=== PATIENT | female | born 1970 | race African-American/Black ===

== ENCOUNTER 2017-07-07 15:38 | Inpatient (IN) | payer OTHER ==
[~2017-07-07] VITALS: Ht 162.6 cm; Wt 89.1 kg
--- NOTE | 2017-07-07 16:52 | ED PSYCHIATRIC COMPLAINT ---
History of Present Illness General Chief Complaint: General Adult Stated Complaint: "IM OFF MY PSYCH MEDS, I NEED SOMETHING TO HELP" Source: patient Exam Limitations: no limitations Vital Signs & Intake/Output Vital Signs & Intake/Output Vital Signs Date Time Temp Pulse Resp B/P B/P Pulse O2 O2 Flow FiO2 Mean Ox Delivery Rate 07/09 0817 98.6 89 18 98/62 98 Room Air 07/09 0611 97.4 75 18 96/72 95 Room Air 07/08 2037 98.1 76 16 114/60 97 Room Air 07/08 1548 98.7 78 16 100/62 99 Room Air Allergies Coded Allergies: NO KNOWN ALLERGIES (10/07/11) Triage Note: 47 YO FEMALE TO TRIAGE C/O "IM JUST OVERWHELMED" STATES THERE IS ALOT GOING ON RIGHT NOW BUT SHE DOES NOT WANT TO TALK ABOUT IT. REPORTS +SI THOUGHT YESTERDAY. DENIES ALCOHOL/DRUG USE. Triage Nurses Notes Reviewed? yes Onset: Abrupt Duration: day(s): (1), constant, continues in ED Timing: recent history Severity: mild, moderate Severity Numbers: 7 Associated Symptoms: anxiety, suicidal ideation LMP (ages 10-50): unknown : No Patient currently breastfeeds: No HPI: 47-year-old female past medical history of anxiety, depression presents for evaluation of worsening depression and anxiety. Patient states that she has not been taking her psych meds for greater than a month. She states that her insurance ran out so she stopped Seeing her doctor. She supposed be taking Seroquel sertraline and trazodone but has not taken them in a month. She denies any alcohol or drug use. She does report feeling very depressed and did report thoughts of suicide but refuses to elaborate on a plan. She denies any homicidal ideation. No chest pain shortness of breath nausea vomiting diarrhea. He repeatedly says "I have nowhere to go and no reason to live". She denies any hallucinations. She has been admitted for psychiatric reasons multiple times. (Alan Orta) Reconcile Medications No Known Home Medications (Cameron Nagel DO) Past History Travel History Traveled to [place] past 21 day No Medical History Any Pertinent Medical History? see below for history Neurological: NONE EENT: NONE Cardiovascular: NONE Respiratory: NONE Gastrointestinal: NONE Hepatic: NONE Renal: NONE Musculoskeletal: NONE Psychiatric: anxiety, depression Endocrine: NONE Blood Disorders: NONE Cancer(s): NONE WOODWORKER/Reproductive: NONE Surgical History Surgical History: non-contributory Psychosocial History What is your primary language Tajik Tobacco Use: Never used Family History Hx Contributory? No (Alan Orta) Review of Systems Review of Systems Constitutional: Reports: no symptoms. EENTM: Reports: no symptoms. Respiratory: Reports: no symptoms. Cardiovascular: Reports: no symptoms. GI: Reports: no symptoms. Genitourinary: Reports: no symptoms. Musculoskeletal: Reports: no symptoms. Skin: Reports: no symptoms. Neurological/Psychological: Reports: see HPI, anxiety, depressed. Hematologic/Endocrine: Reports: no symptoms. Immunologic/Allergic: Reports: no symptoms. All Other Systems: Reviewed and Negative (Alan Orta) Physical Exam Physical Exam General Appearance: well developed/nourished, no apparent distress, alert, awake Head: atraumatic, normal appearance Eyes: Bilateral: normal appearance, PERRL, EOMI. Ears, Nose, Throat: normal pharynx, normal ENT inspection, hearing grossly normal Neck: normal inspection, supple, full range of motion Respiratory: normal breath sounds, chest non-tender, no respiratory distress, lungs clear Cardiovascular: regular rate/rhythm, normal peripheral pulses Gastrointestinal: normal bowel sounds, soft, non-tender, no organomegaly Extremities: normal range of motion Neurological/Psychiatric: no motor/sensory deficits, awake, calm Appearance/Memory/Insight: appropriate appearance, impaired insight Behavoir/Eye Contact/Speech: uncooperative, refused to answer Thoughts/Hallucinations: normal thought pattern, no apparent hallucination Skin: intact, normal color, warm/dry SAD PERSONS SAD PERSONS Response Value Age <19 or >45 years? yes 1 Depression/Hopelessness? yes 2 Previous Attempts/Psych Care yes 1 Rational Thinking Loss? yes 2 Single//? yes 1 Stated Future Intent? yes 2 Total 9 SAD PERSONS Done? yes (Alan Orta) Progress Differential Diagnosis: dementia, drug intoxication, drug overdose, drug withdrawal, electrolyte abnormality Plan of Care: Orders Procedure Date/time Status Admit to inpatient psych 07/09 1124 Active Continuous Observation Monitor 07/09 0700 Active Continuous Observation Monitor 07/09 0300 Active Continuous Observation Monitor 07/08 2300 Active Continuous Observation Monitor 07/08 1900 Active Current Medications Sig/Tiffani Start time Last Medication Dose Stop Time Status Admin Lorazepam 2 MG QPM 07/08 2099 UNVr 07/08 (Ativan) 2122 Quetiapine Fumarate 100 MG BID 07/08 2099 UNVr 07/09 (Seroquel) 0830 Risperidone 2 MG QPM 07/08 2099 UNVr 07/08 (Risperidone) 212 Trazodone HCl 100 MG QPM 07/08 2099 UNVr 07/08 (Desyrel) 212 Lorazepam 2 MG Q6P PRN 07/08 1200 AC (Ativan) Patient seen and evaluated. She is here reporting increasing depression and anxiety medication noncompliance and thoughts of suicide. She refuses to elaborate any further. While patient is remaining calm she is refusing to comply with lab work or a urinalysis. Patient requested that she be medicated prior to blood draw that she was very anxious she was given a milligram of oral Ativan however still refused her blood draw. Patient continues to refuse to allow her blood to be drawn. She has also not given a urine sample. Her vital signs are stable she does not appear clinically intoxicated. We'll continue to attempt to have patient get blood work. Patient was able to give a urine her urine drug screen was negative urinalysis did show some signs of infection and a culture was ordered. We'll continue to attempt to convince patient to allow blood work. Patient continues to refuse blood work. She is here for evaluation of suicidal ideation. So she will require crisis evaluation. Spoke with crisis and they will not be seeing her tonight. Patient will be held over in the emergency department pending labs and crisis evaluation. Patient signsed out to Dr. Momin. Hand-Off Endorsed To: Patrice Momin MD Endorsed Time: 2300 Pending: consult (crisis), labs (Alan Orta) Hand-Off Endorsed To: Julius Woo MD Endorsed Time: 1900 Pending: other (bed search) (Cameron Nagel DO) Hand-Off Endorsed To: Devan Lutz MD Endorsed Time: 07 Pending: other (psych bed placement) (Julius Woo MD) Departure Departure Disposition: STILL A PATIENT Clinical Impression Primary Impression: Suicidal ideation Referrals: Patient Has No Primary Care Dr (PCP/Family) Departure Forms: Customer Survey General Discharge Information (Alan Orta) Departure Condition: Stable Comments pt to be signed out to dr. nagel, 07/08/17, 7am, pending crises eval. PA/LAW FIRM ADMINISTRATOR Co-Sign Statement Statement: ED Attending supervision documentation- [] I saw and evaluated the patient. I have also reviewed all the pertinent lab results and diagnostic results. I agree with the findings and the plan of care as documented in the PA's/LAW FIRM ADMINISTRATOR's documentation. [x] I have reviewed the ED Record and agree with the PA's/LAW FIRM ADMINISTRATOR's documentation. [] Additions or exceptions (if any) to the PAs/LAW FIRM ADMINISTRATOR's note and plan are summarized below: [] (Merrill PATTERSON,Patrice Caceres) Departure Prescriptions: Current Visit Scripts No Known Home Medications PA/LAW FIRM ADMINISTRATOR Co-Sign Statement Statement: ED Attending supervision documentation- [] I saw and evaluated the patient. I have also reviewed all the pertinent lab results and diagnostic results. I agree with the findings and the plan of care as documented in the PA's/LAW FIRM ADMINISTRATOR's documentation. [] I have reviewed the ED Record and agree with the PA's/LAW FIRM ADMINISTRATOR's documentation. [] Additions or exceptions (if any) to the PAs/LAW FIRM ADMINISTRATOR's note and plan are summarized below: [] (Cameron Nagel DO) Psych Admission Note Psychiatric Admission: I have seen and evaluated LUBNA VERA. I have also reviewed all the pertinent lab results and diagnostic results. LUBNA VERA will be admitted to our inpatient Psychiatric unit for treatment and care. (Nelda PATTERSON,Devan Castillo) as documented in the PA's/LAW FIRM ADMINISTRATOR's documentation. [] I have reviewed the ED Record and agree with the PA's/LAW FIRM ADMINISTRATOR's documentation. [] Additions or exceptions (if any) to the PAs/LAW FIRM ADMINISTRATOR's note and plan are summarized below: [] (Cameron Nagel DO)
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
[2017-07-09 11:47] LABS: ABSOLUTE BASOPHIL COUNT 0 /CUMM (0.0-0.2); ABSOLUTE EOSINOPHIL COUNT 0 /CUMM (0.0-0.7); ABSOLUTE GRANULOCYTE CT 2.9 /CUMM (1.4-6.5); ABSOLUTE LYMPH COUNT 1.4 /CUMM (1.2-3.4); ABSOLUTE MONOCYTE COUNT 0.4 /CUMM (0.10-0.60); BASOPHIL % 0.5 % (0.0-2.0); EOSINOPHIL % 0.8 % (0-5); GRANULOCYTE % 60.2 % (42.2-75.2); HEMATOCRIT 33.5 % (37-47); MEAN CORPUSCULAR HGB 27.6 PG (27.0-31.0); MEAN CORPUSCULAR VOLUME 83.7 FL (81.0-99.0); MEAN PLATELET VOLUME 10.9 FL (7.4-10.4); PLATELET COUNT 182 /CUMM (130-400); RBC DISTRIBUTION WIDTH 14.2 % (11.5-14.5); RED BLOOD CELL CT 4.01 /CUMM (4.20-5.40); WHITE BLOOD CELL COUNT 4.8 /CUMM (4.8-10.8)
[2017-07-09 14:04] VITALS: BP 107/66
[2017-07-09 15:55] VITALS: BP 109/62
[2017-07-09 20:20] VITALS: BP 110/67
[2017-07-10 01:30] VITALS: BP 92/60
[2017-07-10 08:24] VITALS: BP 102/64
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
[2017-07-10 12:24] VITALS: BP 105/73
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
[2017-07-10 16:04] VITALS: BP 116/63
--- NOTE | 2017-07-10 17:36 | SOCIAL WORKER PROG NOTE PSYCH ---
Social Work Progress Note Progress Note This curriculum writer met with patient. She stated that she came to the hospital due to SI with thoughts to stab herself with a knife. Patient also reported that she had not been sleeping well over the past few days (about three days). She denied current SI. She denied HI/VH. Patient reported AH at times in which she is "told what to do or not do." She was unable expand further other than to say that occassionally her AH states that she should have acted on SI. Patient stated that she feels safe on the unit and will inform staff immediately if feeling unsafe. Patient stated that she planned on going to [facility], but did not have an appointment. She was agreeable to an IOP referral. Patient reported past use of Crack/Cocaine, with last use about one month ago. Patient stated that she would think about who she would like to invite for a family meeting this weekend.
[2017-07-10 20:05] VITALS: BP 104/58
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
[2017-07-11 08:41] VITALS: BP 110/62
[2017-07-11 12:15] VITALS: BP 105/58
--- NOTE | 2017-07-11 15:13 | CP SOUTH PROGRESS NOTE PSYCH ---
Psych (Inpt) Progress Note Progress Note Include the following elements, when applicable: Involvement in the active treatment of the patient with behavioral observations of the patient and the patient's response to the treatment. Review of the ongoing treatment process in the context of the treatment plan. Indication of how multi-disciplinary staff members are carrying out the treatment plan. Plans for future interventions and recommendations for revision of the treatment plan. Liaison with other physicians/providers. Progress Note: The patient was seen one-to-one and discussed with the unit staff. She has been irritable, angry, with on and off compliance with medication. During our interview she was not making eye contact. She was loud, angry, demanding discharge. She was talking about being influenced/followed/monitored by the [employer] and the [employer] We discussed with the patient and her father. The patient denies suicidal/homicidal ideation, auditory/visual hallucinations or side effects from medication. We did order a small dose of lorazepam to be given with the Seroquel in order to relieve anxiety and help with mood stabilization. The patient understands the risks/benefits/side effects of the medication and agrees to continue taking them as noted below. We will continue present medication regimen, observation, symptom monitoring. The patient will be followed up daily by the unit psychiatrist.
[2017-07-11 16:05] VITALS: BP 101/59
[2017-07-11 19:51] VITALS: BP 123/74
[2017-07-12 07:50] VITALS: BP 107/54
[2017-07-12 12:00] VITALS: BP 118/64
--- NOTE | 2017-07-12 14:04 | CP SOUTH PROGRESS NOTE PSYCH ---
Psych (Inpt) Progress Note Progress Note Include the following elements, when applicable: Involvement in the active treatment of the patient with behavioral observations of the patient and the patient's response to the treatment. Review of the ongoing treatment process in the context of the treatment plan. Indication of how multi-disciplinary staff members are carrying out the treatment plan. Plans for future interventions and recommendations for revision of the treatment plan. Liaison with other physicians/providers. Progress Note 47 years old female in treatment for schizo affective disorder exacerbated due to noncompliance with medication. The patient was seen one-to-one and discussed with the nursing staff. She is pleasant operative, much better than she was previously. She says that the medication helps with her thoughts, understanding what to do for not. Continues to have some thought blocking. The patient denies suicidal/homicidal ideation, auditory/visual hallucinations or side effects from medication. Current Medications Sig/Tiffani Start time Last Medication Dose Route Stop Time Status Admin Acetaminophen 650 MG Q4P PRN 07/10 0830 AC PO Al Hydroxide/Mg 30 ML Q4-6 PRN PRN 07/10 0830 AC Hydroxide PO Ampicillin 500 MG Q6H 07/09 2359 AC 07/13 PO 1745 Lorazepam 0.5 MG Q4 PRN 07/11 1800 AC 07/13 PO 07/18 1759 1746 Lorazepam 1.5 MG QPM 07/10 2100 AC 07/12 PO 2119 Magnesium Hydroxide 30 ML AT BEDTIME NEED.. 07/10 0830 AC PO Nicotine 4 MG Q2 HRS NEEDED PRN 07/11 1845 AC 07/11 PO 1901 Quetiapine Fumarate 50 MG BID 07/10 2100 AC 07/13 PO 0849 Quetiapine Fumarate 25 MG Q4P PRN 07/10 1145 AC 07/13 PO 1746 Risperidone 1 MG QPM 07/10 2100 AC 07/12 PO 2119 Trazodone HCl 50 MG QPM 07/10 2100 AC 07/12 PO 2119 Vital Signs Date Time Temp Pulse Resp B/P B/P Pulse O2 O2 Flow FiO2 Mean Ox Delivery Rate 07/13 1620 87 100/83 07/13 1208 94 102/59 07/13 0838 97.1 92 102/64 07/12 1954 96.5 96 132/61 She is compliant with medication, active on the unit, continues to request discharge, she is improving but there is still paranoia, thought blocking, irritability requiring further stabilization on an inpatient level of care. We will continue present medication regimen, observation, symptom monitoring. The patient will be followed up daily by the unit psychiatrist.
[2017-07-12 15:55] VITALS: BP 111/50
[2017-07-12 19:54] VITALS: BP 132/61
--- NOTE | 2017-07-13 08:26 | CP SOUTH PROGRESS NOTE PSYCH ---
Psych (Inpt) Progress Note Progress Note Include the following elements, when applicable: Involvement in the active treatment of the patient with behavioral observations of the patient and the patient's response to the treatment. Review of the ongoing treatment process in the context of the treatment plan. Indication of how multi-disciplinary staff members are carrying out the treatment plan. Plans for future interventions and recommendations for revision of the treatment plan. Liaison with other physicians/providers. Progress Note: Subjective: Patient knocking on office door several times this morning to speak with display card writer. Patient requesting discharge first thing in the morning. States she is feeling "fine." Patient denies that there is been any conversation about the FBI or [employer] bothering her. Patient denies SI/HI/AVH/SIB. States she used to have AH "a long time ago." Patient denies side effects to medication. Patient eating and sleeping well. Denies side effects to medication, pain or cravings. Patient is not able to come up with any plan post discharge other than going to father's house. Psychoeducation and supportive therapy provided. Patient appears to be in guarded agreement with starting outpatient care near her home in [place]. Denies any other complaints. Objective: Patient was adherent with medications and in behavioral control. Patient has been refusing 6 doses of ampicillin, has taken a total of 8 for UTI. Per nursing, patient refuses medications when she is more psychotic. Patient continues to refuse labs. VSS. Current Medications Sig/Tiffani Start time Last Medication Dose Route Stop Time Status Admin Acetaminophen 650 MG Q4P PRN 07/10 0830 AC PO Al Hydroxide/Mg 30 ML Q4-6 PRN PRN 07/10 0830 AC Hydroxide PO Ampicillin 500 MG Q6H 07/09 2359 AC 07/12 PO 1759 Lorazepam 0.5 MG Q4 PRN 07/11 1800 AC 07/12 PO 07/18 1759 1608 Lorazepam 1.5 MG QPM 07/10 2100 AC 07/12 PO 2119 Magnesium Hydroxide 30 ML AT BEDTIME NEED.. 07/10 0830 AC PO Nicotine 4 MG Q2 HRS NEEDED PRN 07/11 1845 AC 07/11 PO 1901 Quetiapine Fumarate 50 MG BID 07/10 2100 AC 07/12 PO 2119 Quetiapine Fumarate 25 MG Q4P PRN 07/10 1145 AC 07/12 PO 1608 Risperidone 1 MG QPM 07/10 2099 AC 07/12 PO 2118 Trazodone HCl 50 MG QPM 07/10 2099 AC 07/12 PO 2118 Laboratory Tests 07/12/17 0600: Hemoglobin A1c Cancelled, Triglycerides Cancelled, Cholesterol Cancelled, LDL Cholesterol, Calc Cancelled, HDL Cholesterol Cancelled, Cholesterol/HDL Ratio Cancelled Vital Signs Date Time Temp Pulse Resp B/P B/P Pulse O2 O2 Flow FiO2 Mean Ox Delivery Rate 07/12 1954 96.5 96 132/61 07/12 1555 82 111/50 07/12 1200 89 118/64 MSE: General: Patient alert and oriented to self and place, fair hygeine, fair eye contact, speaking minimally, no apparent distress. Speech: Slow and low, speaking only briefly. Motor: No tics, tremors, stereotypy but moving slowly. Mood: "Fine ." Affect: Down, constricted, mood incongruent, non-labile, poorly related. Thought process: Logical, linear and goal-directed, brief. Thought content: No SI/HI/AVH/SIB. Appears fixated on discharge, denies all delusions. Cognition: Mild deficits in memory, attention, concentration. Insight: Poor. Judgment: Fair, remaining in behavioral control on unit. A&P: 47-year-old -[place] female with decompensation of schizophrenia in the context of medication non-adherence presenting as irritable, angry and disorganized with paranoid delusions of being monitored by the [employer]/FBI. Over the weekend Ativan was added prn anxiety in addition to Seroquel. Voluntarily admitted. Patient has been intermittently adherent with medications, in improved behavioral control today and is less angry and more pleasant with staff yesterday. Patient states she feels to be at baseline and requesting discharge first thing in the morning however patient is unlikely ready for discharge and continues to remain paranoid. -Maintain safety, every 15 minute checks -ampicillin for UTI renewed, pt has taken 8 of 14 doses -Continue medications as above -pt interested in OP treatment in [place] -previously was on wait list for bed at [facility], states she wants to go back to [facility] house -Continue plan
[2017-07-13 08:38] VITALS: BP 102/64
[2017-07-13 12:08] VITALS: BP 102/59
[2017-07-13 16:20] VITALS: BP 100/83
[2017-07-13 20:00] VITALS: BP 106/61
[2017-07-14 07:40] VITALS: BP 100/57
[2017-07-14] MEDS ORDERED: AMPICILLIN TRI500 MG PO (09:55)
[2017-07-14] MEDS ORDERED: NICODERM CQ1 EAC1 TOP (09:55)
[2017-07-14] MEDS ORDERED: SEROQUEL50 M1 PO (09:58)
[2017-07-14] MEDS ORDERED: ATIVAN0.5 M1 PO (10:00)
[2017-07-14] MEDS ORDERED: RISPERDAL1 M1 PO (10:00)
--- NOTE | 2017-07-14 11:43 | Patient Discharge Instructions ---
Psych Discharge Inst General Discharge Information Reason for Admission: acute psychosis Psy Discharge Primary Diag+ Unspecified psychotic Dis Psy Discharge Secondary Diag+ history of polysubstance Summary Tests/Major Procedures The patient's urine toxicology was clean there were no drugs in her system. Studies Pending at DC: None Patient Instructions Contact Information Your Psychiatrist on [facility] was Lalo Whitley MD * If you are experiencing an emergency related to this hospitalization, please call [phone] to contact the treating psychiatrist or the psychiatrist-on- call. * To Request a copy of your medical records, please contact the Medical Records Department at [phone]. * To request results of studies pending at the time of discharge, please call [phone]. * Continue your Medications until directed to stop by your Healthcare provider. General Medication Information Please continue to take your new medications and your continued home medications , unless otherwise indicated on your discharge medication list, or unless directed by your MD or FLIGHT ATTENDANT/INFLIGHT MANAGER to stop them. Special Instructions Diet Regular Activity Normal - Tobacco Use Treatment Offered Post DC Medications Offered: Script Given-See Med List Post DC Tobacco Treatment Plan: Refused Tobacco Tx Pgm - EtOH/Drug Use D/O Treatment Offered Post DC Medications Offered: Ref Med EtOH/Drug Use D/O Post DC EtOH/SubAbuse TX Plan: Refused Post DC Tx Pgm Metabolic Screening Patient on a neuroleptic(s) . Enter below results for Hemoglobin A1C, and lipid panel if obtained during the last 365 days. BMI: 34.500 Blood Pressure: 100/57 Laboratory Results From [facility] (If applicable): patient refused to do metabolic profile/lipids/HbA1c more than once 07/12/17 0600: Hemoglobin A1c Cancelled, Triglycerides Cancelled, Cholesterol Cancelled, LDL Cholesterol, Calc Cancelled, HDL Cholesterol Cancelled, Cholesterol/HDL Ratio Cancelled[ Advance Directives Does the Patient have Medical Advance Directives No/Refused further info Does Pt have Psychiatric Advance Directives? No/Refused further info Does Patient have a Designated Surrogate Decision Maker: No Information About Psychiatric Advance Directives Provided? Refused Discharge Plan Post Hospital Treatment Plan: [facility] vs. [facility]
--- NOTE | 2017-07-14 11:45 | CP SOUTH PROGRESS NOTE PSYCH ---
Psych (Inpt) Progress Note Progress Note I reviewed the notes of Dr. Jessica Geiger MD for 07/11 and [address] Polina Brian MD, for 07/13/17 Treatment team discussed Pt's progress, treatment plan, and aftercare plans. Team included: LCSWs, RNs, Group/Activity/Art Therapy staff, and psychiatrist. Laboratory Tests 07/14 Hemoglobin A1c Cancelled Vital Signs Date Time Temp Pulse B/P B/P 07/14 0740 96.5 90 100/57 07/13 2000 96.3 98 106/61 07/13 1620 87 100/83 Patient focused on discharge/requesting discharge first thing in the morning. She reported feeling "fine" and ready to go home. She denied feeling hopeless, denied feeling worthless, denied wishing , and denied thinking of suicide. There were no delusions today about the FBI or the [employer] or she denied hallucinations. She reported that she has been sleeping well. Denied feeling depressed. Denied feeling too anxious. And has been taking medications as prescribed. She denied side effects. There was no visible side effects from the medication and (no akathisia no dystonia and no parkinsonian tremors Patient alert and oriented to self and place, fair hygeine, fair eye contact, speaking minimally, no apparent distress. Speech: Slow and low, speaking only briefly. Motor: No tics, tremors, stereotypy but moving slowly. Mild deficits in memory, attention, concentration. good behavioral control on unit. A&P: 47-year-old -[place] female with decompensation of schizophrenia in the context of medication non-adherence presenting as irritable, angry and disorganized with paranoid delusions of being monitored by the [employer]/FBI. Voluntarily admitted. Plan; D/C Home
[2017-07-14 11:50] VITALS: BP 106/61
--- NOTE | 2017-07-14 14:41 | DISCHARGE SUMMARY REPORT-PSYCH ---
Visit Information Visit Dates/Diagnosis' Admission Date: 07/09/17 Discharge Date: 07/14/17 Reason for Admission: acute psychosis Psy Discharge Primary Diag: Unspecified psychotic Dis Psy Discharge Secondary Diag: history of polysubstance Hospital Course Course Allergies: Coded Allergies: NO KNOWN ALLERGIES (10/07/11) Hospital Course/TX Response: Laboratory Tests 07/14 Hemoglobin A1c Cancelled Vital Signs Date Time Temp Pulse B/P B/P 07/14 0740 96.5 90 100/57 07/13 2000 96.3 98 106/61 07/13 1620 87 100/83 Patient focused on discharge/requesting discharge first thing in the morning. She reported feeling "fine" and ready to go home. She denied feeling hopeless, denied feeling worthless, denied wishing , and denied thinking of suicide. There were no delusions today about the FBI or the [employer] or she denied hallucinations. She reported that she has been sleeping well. Denied feeling depressed. Denied feeling too anxious. And has been taking medications as prescribed. She denied side effects. There was no visible side effects from the medication and (no akathisia no dystonia and no parkinsonian tremors Patient alert and oriented to self and place, fair hygeine, fair eye contact, speaking minimally, no apparent distress. Speech: Slow and low, speaking only briefly. Motor: No tics, tremors, stereotypy but moving slowly. Mild deficits in memory, attention, concentration. good behavioral control on unit. A&P: 47-year-old -[place] female with decompensation of schizophrenia in the context of medication non-adherence presenting as irritable, angry and disorganized with paranoid delusions of being monitored by the [employer]/FBI. Voluntarily admitted. Plan; D/C Home Discharge HBIPS - Tobacco Use Treatment Offered - EtOH/Drug Use D/O Treatment Offered Metabolic Screening - Screen if on a Neuroleptic Medication - Metabolic screening should include: - Blood Pressure, BMI, Glucose or Hgb A1c, & a - Lipid profile from within the past 365 days. Discharge Instructions General Discharge Information Multiple Neuroleptics: Patient uses seroquel for sleep only (low dose), did not want to use another sleeping aid Discharge Diet Regular Discharge Activity Normal Referrals Ordered Referrals Provider Referral 07/21/17 For Groups: [[facility]] [address] [phone] IOP intake appointment: 07/21/17, at 2pm Provider Referral 07/15/17 For Groups: [[facility]] [facility] [address], [place] [phone] Group meets every other Thursday at 4pm Next group: 07/15/17 at 4pm Prescriptions Start taking the following new medications: Ampicillin Trihydrate (Ampicillin Trihydrate) 500 MG CAPSULE 500 Milligram ORAL 4 TIMES A DAY Qty = 8 No Refills Comments: Last Taken:07/14/17 Time:12MN Risperidone (Risperdal) 1 MG TABLET 1 Milligram ORAL Every night Qty = 30 No Refills Comments: Last Taken:07/13/17 Time:9:45PM Nicotine (Nicoderm Cq) 14 MG/24 HOUR PATCH.TD24 1 Patch On the skin DAILY Qty = 28 No Refills Comments: Last Taken:TO START AT HOME Time: Quetiapine Fumarate (Seroquel) 50 MG TABLET 1 Tablet ORAL Every night Qty = 30 No Refills Comments: Last Taken:07/14/17 Time:8:30AM Lorazepam (Ativan) 0.5 MG TABLET 2 Tablet ORAL SEE INSTRUCTIONS Qty = 21 No Refills Instructions: 2 tabs at bedtime x 1 week then 1 tab at bedtime x 1 week then STOP Comments: Last Taken:07/13/17 Time:9:45PM Studies Pending at Discharge None
--- NOTE | 2017-07-14 17:39 | SOCIAL WORKER PROG NOTE PSYCH ---
See Addendum Social Work Progress Note Progress Note This insurance underwriter sales met with patient. She expressed interest in discharging today. Patient was agreeable to a referral to [facility] for IOP. She described as good. Patient reported no depression today and denied SI/HI/AH/VH. Regarding a safety plan, she accepted the crisis numbers and warm line numbers. Patient stated that her father will pick her up from the hospital and she plans to return home with him. She refused a family meeting with her father or any other family member or friend. Patient stated that she does not currently have health insurance and has a TEMP ID with [employer]. This insurance underwriter sales assisted her in calling [employer] ([phone]) . We were informed that due to the patient being disabled, she would be unable to apply by phone. Patient stated that she would go to the [facility] office once discharged. This was relayed to Suzan ( business office, ext [phone]), Kait May (admitting/inpatient verification) and Marta Becker LCSW. This insurance underwriter sales also informed Brittni at [facility] of this situation. Brittni stated that [facility] has staff members who can assist the patient if needed. (This insurance underwriter sales was informed by Brittni after patient discharged that Keri and/or Carmen at [facility] would be the staff assisting the patient if needed. This insurance underwriter sales called patient and provided her with these names). An IOP intake at [facility] was scheduled for 07/21/17 at 2pm. Patient accepted this appointment. Patient also accepted the smoking cessation group information. She stated that she did not need any other referrals or appointments. Faxed Referral(s) Referred To: [facility] Transition of Care Documents sent: Health Summary, IOP admission form, 2 pages Faxed to: Darby Spangler/Brittni Fax #: [phone] Faxed by: Mt Bourgeois LCSW Date faxed: 07/14/17 Time Faxed: [phone]
== END 2017-07-14 12:16 | DRG 751 ==
LOC: ERH 15:38 → CP SOUTH 07-09 11:24 → ERHI 07-09 11:24 → ENTRNSPT 07-09 13:20 → EDTRNSPTSTS 07-09 13:32 → EDTRNSPT 07-09 13:32 → CP SOUTH 07-09 13:48 → CMPTRNSPT 07-09 13:54 → CP SOUTH 07-10 08:48
PROVIDERS: Student in an Organized Health Care Education/Training Program
DX: F29 Unspecified psychosis not due to a substance or known physiological condition (principal); Z87.898 Personal history of other specified conditions
CPT/HCPCS: 80307; 81001; 81025; 87086; G0463; G0480